=== PATIENT | female | born 1990 | race Caucasian/White ===

== ENCOUNTER 2020-07-27 20:34 | Emergency (ER) | payer SELFPAY ==
[~2020-07-27] VITALS: Ht 154.9 cm; Wt 63.5 kg
--- NOTE | 2020-07-27 20:51 | ED Cough/URI ---
General Stated Complaint: COUGH,SORE THROAT,DIARRHEA,CHILLS Source: patient Exam Limitations: no limitations History of Present Illness Date Seen by Provider: Jul 27, 2020 Time Seen by Provider: 20:49 Initial Comments To ER with a nonproductive cough, sore throat, diarrhea, chills, body aches, headache that began suddenly yesterday. She has not had the Covid vaccine. Timing/Duration: constant Severity/Quality: dry cough Prior Episodes/Possible Cause: no prior episodes Associated Symptoms: cough, fever/chills, nasal congestion, sore throat Allergies and Home Medications Allergies Coded Allergies: No Known Drug Allergies (Unverified , 07/27/20) Patient Home Medication List Home Medication List Reviewed: Yes Review of Systems Review of Systems Constitutional: see HPI, chills, malaise EENTM: see HPI Respiratory: cough Cardiovascular: no symptoms reported Genitourinary: no symptoms reported Musculoskeletal: no symptoms reported Skin: no symptoms reported Psychiatric/Neurological: No Symptoms Reported Hematologic/Lymphatic: No Symptoms Reported Physical Exam Vital Signs - First Documented Capillary Refill : Height: '" Weight: lbs. oz. kg; BMI Method: General Appearance: WD/WN, no apparent distress, other (Alert and oriented no distress heart rate little high at about 110 oxygen saturation 98% room air blood pressure 122/86.) Eyes: Bilateral Eye Normal Inspection, Bilateral Eye PERRL, Bilateral Eye EOMI Neck: non-tender, full range of motion; No lymphadenopathy (R), No lymphadenopa thy (L) Respiratory: no respiratory distress, no accessory muscle use Cardiovascular: no murmur, tachycardia Gastrointestinal: normal bowel sounds, non tender, soft Neurologic/Psychiatric: alert, normal mood/affect, oriented x 3 Skin: normal color, warm/dry Focused Exam Lactate Level 07/27/20 20:52: Lactic Acid Level 1.24 Lactic Acid Level Laboratory Tests Test 07/27/20 20:52 Lactic Acid Level 1.24 MMOL/L (0.50-2.00) Progress/Results/Core Measures Suspected Sepsis SIRS Temperature: Pulse: Respiratory Rate: Laboratory Tests 07/27/20 20:52: White Blood Count 5.9 Blood Pressure / Mean: 07/27/20 20:52: Lactic Acid Level 1.24 Laboratory Tests 07/27/20 20:52: Creatinine 0.93, Platelet Count 217, Total Bilirubin 0.2 Results/Orders Lab Results Laboratory Tests Test 07/27/20 20:45 07/27/20 20:52 07/27/20 21:34 Range/Units Influenza Type A (RT-PCR) Not Detected Not Detecte Influenza Type B (RT-PCR) Not Detected Not Detecte SARS-CoV-2 RNA (RT-PCR) Detected H Not Detecte White Blood Count 5.9 4.3-11.0 10^3/uL Red Blood Count 4.50 3.80-5.11 10^6/uL Hemoglobin 14.0 11.5-16.0 g/dL Hematocrit 41 35-52 % Mean Corpuscular Volume 92 80-99 fL Mean Corpuscular Hemoglobin 31 25-34 pg Mean Corpuscular Hemoglobin Concent 34 32-36 g/dL Red Cell Distribution Width 12.4 10.0-14.5 % Platelet Count 217 130-400 10^3/uL Mean Platelet Volume 11.0 9.0-12.2 fL Immature Granulocyte % (Auto) 0 % Neutrophils (%) (Auto) 57 42-75 % Lymphocytes (%) (Auto) 31 12-44 % Monocytes (%) (Auto) 11 0-12 % Eosinophils (%) (Auto) 1 0-10 % Basophils (%) (Auto) 0 0-10 % Neutrophils # (Auto) 3.4 1.8-7.8 10^3/uL Lymphocytes # (Auto) 1.8 1.0-4.0 10^3/uL Monocytes # (Auto) 0.6 0.0-1.0 10^3/uL Eosinophils # (Auto) 0.1 0.0-0.3 10^3/uL Basophils # (Auto) 0.0 0.0-0.1 10^3/uL Immature Granulocyte # (Auto) 0.0 0.0-0.1 10^3/uL Sodium Level 138 135-145 MMOL/L Potassium Level 3.4 L 3.6-5.0 MMOL/L Chloride Level 106 98-107 MMOL/L Carbon Dioxide Level 21 21-32 MMOL/L Anion Gap 11 5-14 MMOL/L Blood Urea Nitrogen 7 7-18 MG/DL Creatinine 0.93 0.60-1.30 MG/DL Estimat Glomerular Filtration Rate > 60 BUN/Creatinine Ratio 8 Glucose Level 100 70-105 MG/DL Lactic Acid Level 1.24 0.50-2.00 MMOL/L Calcium Level 9.1 8.5-10.1 MG/DL Corrected Calcium 8.9 8.5-10.1 MG/DL Total Bilirubin 0.2 0.1-1.0 MG/DL Aspartate Amino Transf (AST/SGOT) 36 H 5-34 U/L Alanine Aminotransferase (ALT/SGPT) 47 0-55 U/L Alkaline Phosphatase 117 40-136 U/L Total Protein 8.1 6.4-8.2 GM/DL Albumin 4.2 3.2-4.5 GM/DL Serum Test, Qualitative NEGATIVE NEGATIVE Urine Color YELLOW Urine Clarity CLEAR Urine pH 6.0 5-9 Urine Specific [place] 1.020 1.016-1.022 Urine Protein NEGATIVE NEGATIVE Urine Glucose (UA) NEGATIVE NEGATIVE Urine Ketones NEGATIVE NEGATIVE Urine Nitrite NEGATIVE NEGATIVE Urine Bilirubin NEGATIVE NEGATIVE Urine Urobilinogen 1.0 < = 1.0 MG/DL Urine Leukocyte Esterase 1+ H NEGATIVE Urine RBC (Auto) 1+ H NEGATIVE Urine RBC 0-2 /HPF Urine WBC 0-2 /HPF Urine Squamous Epithelial Cells 5-10 /HPF Urine Crystals NONE /LPF Urine Bacteria NEGATIVE /HPF Urine Casts NONE /LPF Urine Mucus NEGATIVE /LPF Urine Culture Indicated NO My Orders Orders - ROGE ERICKSON FITTING SUPERVISOR Covid 19 Inhouse Test (07/27/20 20:40) Influenza A And B By Pcr (07/27/20 20:40) Chest 1 View, Ap/Pa Only (07/27/20 20:47) Ibuprofen Tablet (Motrin Tablet) (07/27/20 21:00) Ns Iv 1000 Ml (Sodium Chloride 0.9%) (07/27/20 21:00) Ua Culture If Indicated (07/27/20 21:00) Cbc With Automated Diff (07/27/20 21:00) Comprehensive Metabolic Panel (07/27/20 21:00) Hcg,Qualitative Serum (07/27/20 21:00) Lactic Acid Analyzer (07/27/20 21:00) Blood Culture (07/27/20 21:00) Medications Given in ED Current Medications Medications Dose Ordered Sig/Stephanie Route Start Time Stop Time Status Last Admin Dose Admin Ibuprofen 800 mg ONCE ONCE PO 07/27/20 21:00 07/27/20 21:01 DC 07/27/20 21:04 800 MG Vital Signs/I&O 07/27/20 07/27/20 07/27/20 07/27/20 20:42 20:42 20:42 21:04 Temp 38.4 38.4 38.4 Pulse 120 120 Resp 18 18 B/P (MAP) 122/86 (98) 122/86 Pulse Ox 98 98 O2 Delivery Room Air Room Air Capillary Refill : Departure Impression Primary Impression: COVID-19 Disposition: 01 HOME, SELF-CARE Condition: Stable Departure-Patient Inst. Decision time for Depature: 21:51 Patient Instructions: COVID-19 Overview Add. Discharge Instructions: 1. Take Tylenol and ibuprofen for fever or pain. You will feel sick for about 10 days. You should stay quarantined away from family friends and work until 10 days from yesterday. Return to ER for any worsening. Work/School Note: Work Release Form Date Seen in the Emergency Department: Jul 27, 2020 Return to Work: Aug 06, 2020 ROGE ERICKSON APRN Jul 27, 2020 20:51
[2020-07-27] MEDS ORDERED: IBUPROFEN 800 MG (MOTRIN) TAB PO ONE (21:00)
[2020-07-27] MEDS ORDERED: NS IV 1000 ML 1,000 ML IV SCH (21:00)
[2020-07-27 21:10] LABS: BASOPHILS % (AUTO) 0 % (0-10); EOSINOPHILS # (AUTO) 0.1 10^3/uL (0.0-0.3); EOSINOPHILS % (AUTO) 1 % (0-10); HEMATOCRIT 41 % (35-52); LYMPHOCYTES # (AUTO) 1.8 10^3/uL (1.0-4.0); LYMPHOCYTES % (AUTO) 31 % (12-44); MEAN CORPUSCULAR HEMOGLOBIN 31 pg (25-34); MEAN CORPUSCULAR HGB CONC 34 g/dL (32-36); MEAN CORPUSCULAR VOLUME 92 fL (80-99); MONOCYTES # (AUTO) 0.6 10^3/uL (0.0-1.0); MONOCYTES % (AUTO) 11 % (0-12); NEUTROPHILS # (AUTO) 3.4 10^3/uL (1.8-7.8); NEUTROPHILS % (AUTO) 57 % (42-75); PLATELET COUNT 217 10^3/uL (130-400); WHITE BLOOD COUNT 5.9 10^3/uL (4.3-11.0)
[2020-07-27 21:36] LABS: BILIRUBIN,URINE NEGATIVE (NEGATIVE); CLARITY,URINE CLEAR; COLOR,URINE YELLOW; GLUCOSE, URINE (UA) NEGATIVE (NEGATIVE); KETONES,URINE NEGATIVE (NEGATIVE); LEUKOCYTE ESTERASE ,URINE 1+ (NEGATIVE); NITRITE,URINE NEGATIVE (NEGATIVE); PROTEIN,URINE NEGATIVE (NEGATIVE)
[2020-07-27 21:38] LABS: ALANINE AMINOTRANSFERASE 47 U/L (0-55); ALBUMIN 4.2 GM/DL (3.2-4.5); ALKALINE PHOSPHATASE 117 U/L (40-136); BILIRUBIN,TOTAL 0.2 MG/DL (0.1-1.0); BUN/CREATININE RATIO 8; CALCIUM 9.1 MG/DL (8.5-10.1); CARBON DIOXIDE 21 MMOL/L (21-32); CHLORIDE 106 MMOL/L (98-107); CREATININE SERUM 0.93 MG/DL (0.60-1.30); GFR ESTIMATED > 60; GLUCOSE 100 MG/DL (70-105); POTASSIUM 3.4 MMOL/L (3.6-5.0); SODIUM 138 MMOL/L (135-145); TOTAL PROTEIN 8.1 GM/DL (6.4-8.2)
--- NOTE | 2020-07-27 21:40 | Diagnostic Imaging Report ---
EXAMINATION: Chest 1 view. HISTORY: Cough and fever. COMPARISON: None available. FINDINGS: The lungs are clear without edema or pneumonia. No pleural effusion or pneumothorax. Heart size is normal. IMPRESSION: Clear lungs. Dictated by: Dictated on workstation # [id number]
[2020-07-27 21:48] LABS: BACTERIA,URINE NEGATIVE /HPF; RBC,URINE 0-2 /HPF; WBC,URINE 0-2 /HPF
[2020-07-27 22:13] VITALS: BP 101/67
== END 2020-07-27 22:14 | disposition home or self-care (01) ==
LOC: ER 20:37
DX: U07.1 COVID-19 (principal); R00.0 Tachycardia, unspecified
CPT/HCPCS: 36415; 71045; 80053; 81000; 83605; 84703; 85025; 87040; 87636

== ENCOUNTER 2021-01-30 17:34 | Emergency (ER) | payer MEDICAID ==
[~2021-01-30] VITALS: Ht 157.5 cm; Wt 59.0 kg
[2021-01-30 18:12] LABS: BILIRUBIN,URINE NEGATIVE (NEGATIVE); CLARITY,URINE CLEAR; COLOR,URINE YELLOW; GLUCOSE, URINE (UA) NEGATIVE (NEGATIVE); KETONES,URINE NEGATIVE (NEGATIVE); LEUKOCYTE ESTERASE ,URINE 2+ (NEGATIVE); NITRITE,URINE NEGATIVE (NEGATIVE); PROTEIN,URINE NEGATIVE (NEGATIVE)
[2021-01-30 18:19] LABS: BACTERIA,URINE MODERATE /HPF
--- NOTE | 2021-01-30 18:39 | ED Back Pain ---
General Chief Complaint: Back Problems Stated Complaint: BACK PAIN Nursing Triage Note: PT AMBULATE TO ROOM FT1 WITH C/O RIGHT UPPER BACK PAIN. PT REPORTS HAVING A COUPLE DARKENED AREAS OF SKIN THAT HAVE GOTTEN DARKER AND FEELS PAIN "DEEP INSIDE" WHERE THE AREAS ARE AT. PT REPORTS PAIN IS WORSE WHEN SHE BENDS AND TWISTS. Source of Information: Patient Exam Limitations: No Limitations History of Present Illness Date Seen by Provider: Jan 30, 2021 Time Seen by Provider: 18:10 Initial Comments Here with report of right upper back pain and an area that has skin color changes as well. She states this pain has been intermittent over the last 10 years and feels like it is inside. She noted that she has mentation changes in the area. It is not raised and there is no other abnormal skin findings. She thinks it is grown a little bit. Does note that the pain worsens when she bends and reaches forward. She does work at one of the local [employer] jobs and some days that increases her pain but other days she has no problems. Denies any specific injury. Location: Other (Right low lateral thoracic region) Timing/Duration: Intermittent, Other (10 years) Severity: Mild, Moderate Pain/Injury Location: Back Radiation: Other (No radiation) Method of Injury: Unknown Modifying Factors: Worse With Movement; Improves With Rest Associated Symptoms: denies symptoms Allergies and Home Medications Allergies Coded Allergies: No Known Drug Allergies (Unverified , 07/27/20) Patient Home Medication List Home Medication List Reviewed: Yes Review of Systems Constitutional: see HPI; No chills, No fever Respiratory: No cough, No short of breath Cardiovascular: no symptoms reported Gastrointestinal: No abdominal pain, No nausea, No vomiting Genitourinary: No dysuria, No frequency Musculoskeletal: back pain, muscle pain Skin: see HPI, change in color; No rash Past Blsuqof-Ieolrm-Lvuxol Hx Patient Social History Tobacco Use?: No Smoking Status: Never a Smoker Smokeless Tobacco Frequency: Never a User Use of E-Cig and/or Vaping dev: No Use of E-Cig and/or Vaping Yinka: Never a User Substance use?: No Alcohol Use?: No Pt feels they are or have been: No Seasonal Allergies Seasonal Allergies: No Past Medical History Surgeries: No Respiratory: No Cardiac: No Neurological: No Genitourinary: No Gastrointestinal: No Musculoskeletal: No Endocrine: No HEENT: No Cancer: No Psychosocial: No Integumentary: No Blood Disorders: No Family Medical History Reviewed Nursing Family Hx Physical Exam Vital Signs Vital Signs - First Documented 01/30/21 17:53 Temp 36.8 Pulse 82 Resp 16 B/P (MAP) 125/90 (102) O2 Delivery Room Air Capillary Refill : Less Than 3 Seconds Height, Weight, BMI Height: '" Weight: lbs. oz. kg; 23.00 BMI Method: General Appearance: No Apparent Distress, WD/WN Cardiovascular: Regular Rate, Rhythm, No Murmur Respiratory: Lungs Clear, Normal Breath Sounds Gastrointestinal: No Pulsatile Mass, Non Tender, Soft Back: No CVA Tenderness, No Vertebral Tenderness Neurologic/Psychiatric: Alert, Oriented x3 Skin: Warm/Dry, Other (Does have 2 areas of darker pigmentation in the area of concern on the right lower lateral chest posterior aspect. These are not raised. There is no associated rash or lesion. Nontender to palpation. She states her pain is actually deeper.) Progress/Results/Core Measures Results/Orders Lab Results Laboratory Tests Test 01/30/21 18:10 Range/Units Urine Color YELLOW Urine Clarity CLEAR Urine pH 6.0 5-9 Urine Specific [place] 1.025 H 1.016-1.022 Urine Protein NEGATIVE NEGATIVE Urine Glucose (UA) NEGATIVE NEGATIVE Urine Ketones NEGATIVE NEGATIVE Urine Nitrite NEGATIVE NEGATIVE Urine Bilirubin NEGATIVE NEGATIVE Urine Urobilinogen 0.2 < = 1.0 MG/DL Urine Leukocyte Esterase 2+ H NEGATIVE Urine RBC (Auto) 1+ H NEGATIVE Urine RBC 2-5 H /HPF Urine WBC 10-25 H /HPF Urine Squamous Epithelial Cells 10-25 H /HPF Urine Crystals NONE /LPF Urine Bacteria MODERATE H /HPF Urine Casts NONE /LPF Urine Mucus NEGATIVE /LPF Urine Culture Indicated YES My Orders Orders - HEAVEN QUACH MD Chest Pa/Lat (2 View) (01/30/21 18:23) Vital Signs/I&O 01/30/21 17:53 Temp 36.8 Pulse 82 Resp 16 B/P (MAP) 125/90 (102) O2 Delivery Room Air Blood Pressure Mean: 102 Progress Progress Note : Progress Note Seen and evaluated. UA ordered due to location of pain. X-ray chest also ordered. I do not have concerns with the pigmentation and actually had second opinion with Dr. Orozco. This just seems to be an area of more hyperpigmentation without lesion. We will see what chest x-ray shows. Patient was appreciative. Monitor patient. 1911: Chest x-ray shows no acute findings. Discharged home with return precautions. Patient verbalized understanding of instructions and agreement with plan. Diagnostic Imaging Diagonstic Imaging: Xray Plain Films/CT/US/NM/MRI: chest Comments [facility]. [place], [place] NAME: VIKAS GARIBAY REC#: [id number] PT STATUS: REG ER : 1990 PHYSICIAN: HEAVEN QUACH MD ADMIT DATE: 01/30/21/ER Signed Date of Exam:01/30/21 CHEST PA/LAT (2 VIEW) INDICATION: Right chest pain. COMPARISON: 07/27/2020 FINDINGS: The lungs appear clear without focal infiltrate or consolidation. There are no findings of an effusion. There is no evidence of a pneumothorax. Heart size and mediastinal contours appear appropriate. Pulmonary vascularity appears within normal limits. There is no acute or suspicious osseous abnormality demonstrated. IMPRESSION: No radiographic evidence of an acute cardiopulmonary process. Dictated by: Dictated on workstation # [id number] Dict: 01/30/211848 Trans: 01/30/211850 [facility] [id number] Interpreted by: JOHN CREWS MD Electronically signed by: JOHN CREWS MD 01/30/211850 Departure Impression Primary Impression: Chest wall pain Disposition: 01 HOME, SELF-CARE Condition: Stable Departure-Patient Inst. Decision time for Depature: 19:13 Referrals: BALJIT GRIFFIN MD NO,LOCAL PHYSICIAN (PCP) Primary Care Physician [facility] Patient Instructions: Upper Back Pain (DC), Costochondritis (DC) Add. Discharge Instructions: All discharge instructions reviewed with patient and/or family. Voiced understanding. You may take ibuprofen 600 mg every 8 hours as needed for pain. You may also take Tylenol/acetaminophen 1000 mg every 8 hours as needed for pain. You may use hyac-dht-uczayzj Icy Hot with lidocaine patches, Aspercreme with lidocaine patches, Salonpas with lidocaine patches or similar items to area of concern per package directions. Follow-up with your doctor or doctor of your choosing for recheck and further evaluation. Monitor for changes of the skin including raised areas, change in texture or change in size. If these occur, you should follow-up with your doctor. Return for worse pain, fever, vomiting, weakness, breathing problems or other concerns as needed. HEAVEN QUACH MD Jan 30, 2021 18:39
--- NOTE | 2021-01-30 18:52 | Diagnostic Imaging Report ---
INDICATION: Right chest pain. COMPARISON: 07/27/2020 FINDINGS: The lungs appear clear without focal infiltrate or consolidation. There are no findings of an effusion. There is no evidence of a pneumothorax. Heart size and mediastinal contours appear appropriate. Pulmonary vascularity appears within normal limits. There is no acute or suspicious osseous abnormality demonstrated. IMPRESSION: No radiographic evidence of an acute cardiopulmonary process. Dictated by: Dictated on workstation # [id number]
[2021-01-30 19:21] VITALS: BP 125/90
== END 2021-01-30 19:27 | disposition home or self-care (01) ==
LOC: EDUNIT# 17:34 → ER 17:38
DX: R07.89 Other chest pain (principal)
CPT/HCPCS: 71046; 81000; 84703; 87088

== ENCOUNTER 2021-02-01 09:13 | Emergency (ER) | payer MEDICAID ==
[~2021-02-01] VITALS: Ht 152.4 cm; Wt 59.0 kg
[2021-02-01] MEDS ORDERED: D-ME118S33 PO (10:37)
--- NOTE | 2021-02-01 10:38 | ED General ---
General Chief Complaint: General Problems/Pain Stated Complaint: RUNNY NOSE, FEVER, SORE THROAT Nursing Triage Note: AMB TO ROOM HAD BEEN AT REGESTRATION DESK WAS SEEN 2 DAYS AGO IN ED RESQUESTED NOTE TILL WEDNESDAY WAS TOLD COULD ONLY GIVE HER ONE DAY. PATIENT THAN CHECKED IN ED FOR SORE THROAT AND CONGESTION BUT DENIES ALL. HAD COVID IN JUL Source of Information: Patient Exam Limitations: No Limitations History of Present Illness Date Seen by Provider: Feb 01, 2021 Time Seen by Provider: 10:35 Initial Comments To ER with "a cold". Had Covid in July and has recovered. Has not been vaccinated. Symptoms began 2 days ago with runny nose sore throat no body aches no fever no headache no diarrhea. Timing/Duration: 1-2 Days Severity: Moderate Associated Systoms: Cough (Mild infrequent); No Headaches, No Nausea/Vomiting Allergies and Home Medications Allergies Coded Allergies: No Known Drug Allergies (Unverified , 07/27/20) Patient Home Medication List Home Medication List Reviewed: Yes Review of Systems Review of Systems Constitutional: see HPI EENTM: see HPI, nose congestion Respiratory: no symptoms reported Cardiovascular: no symptoms reported Genitourinary: no symptoms reported Musculoskeletal: no symptoms reported Skin: no symptoms reported Psychiatric/Neurological: No Symptoms Reported Hematologic/Lymphatic: No Symptoms Reported Past Uoapccc-Mzllpd-Danpqr Hx Patient Social History Use of E-Cig and/or Vaping dev: No Substance use?: No Seasonal Allergies Seasonal Allergies: No Past Medical History Surgeries: No Respiratory: No Cardiac: No Neurological: No Genitourinary: No Gastrointestinal: No Musculoskeletal: No Endocrine: No HEENT: No Cancer: No Psychosocial: No Integumentary: No Blood Disorders: No Physical Exam Vital Signs Vital Signs - First Documented 02/01/21 09:25 Temp 36.6 Pulse 87 Resp 18 B/P (MAP) 118/78 (91) Pulse Ox 97 O2 Delivery Room Air Capillary Refill : Less Than 3 Seconds Height, Weight, BMI Height: '" Weight: lbs. oz. kg; 25.00 BMI Method: General Appearance: No Apparent Distress, WD/WN Eyes: Bilateral Eye Normal Inspection, Bilateral Eye PERRL, Bilateral Eye EOMI HEENT: PERRL/EOMI, TMs Normal, Other (Rhinorrhea. Normal throat. Lungs are clear.) Neck: Full Range of Motion, Normal Inspection Respiratory: Normal Breath Sounds, No Accessory Muscle Use, No Respiratory Distress Cardiovascular: Regular Rate, Rhythm Gastrointestinal: Normal Bowel Sounds, Non Tender, Soft Extremity: Normal Capillary Refill, Normal Inspection Neurologic/Psychiatric: Alert, Oriented x3 Skin: Normal Color, Warm/Dry Progress/Results/Core Measures Suspected Sepsis SIRS Temperature: Pulse: 87 Respiratory Rate: 18 Blood Pressure 118 /78 Mean: 91 Results/Orders Vital Signs/I&O 02/01/21 09:25 Temp 36.6 Pulse 87 Resp 18 B/P (MAP) 118/78 (91) Pulse Ox 97 O2 Delivery Room Air Capillary Refill : Less Than 3 Seconds Blood Pressure Mean: 91 Departure Impression Primary Impression: Viral syndrome Disposition: HOME, SELF-CARE Condition: Stable Departure-Patient Inst. Decision time for Depature: 10:36 Referrals: NO,LOCAL PHYSICIAN (PCP) Primary Care Physician Patient Instructions: Viral Syndrome (DC) Add. Discharge Instructions: 1. Return to ER for any concerns 2. Medication as directed. Off work till Wednesday. Return to ER for any worsening All discharge instructions reviewed with patient and/or family. Voiced understanding. Scripts D-Methorphan Hb/P-Epd HCl/Bpm (Bromfed Dm Cough Syrup) 118 Ml Syrup 5 ML PO Q4H PRN for CONGESTION for 7 Days, #120 ML Prov: ROGE ERICKSON APRN 02/01/21 Work/School Note: Work Release Form Date Seen in the Emergency Department: Feb 01, 2021 Return to Work: Feb 04, 2021 ROGE ERICKSON APRN Feb 01, 2021 10:38
[2021-02-01 10:42] VITALS: BP 118/78
== END 2021-02-01 10:42 | disposition home or self-care (01) ==
LOC: EDUNIT# 09:13 → ER 09:17
DX: B34.9 Viral infection, unspecified (principal); Z86.16 Personal history of COVID-19
CPT/HCPCS: 99281

== ENCOUNTER 2021-04-03 16:14 | Emergency (ER) | payer MEDICAID ==
[~2021-04-03] VITALS: Ht 157.5 cm; Wt 61.3 kg
[~2021-04-03 16:14] MED LIST: D-ME118S33 PO
--- NOTE | 2021-04-03 16:29 | ED Chest Pain ---
General Chief Complaint: Chest Wall Stated Complaint: HEART PAIN Source: patient Exam Limitations: no limitations History of Present Illness Date Seen by Provider: Apr 03, 2021 Time Seen by Provider: 16:27 Initial Comments To ER with sharp anterior left chest pain worsened by deep breathing since Wednesday of this week (today is ). No fevers no chills no cough no sore throat no rhinorrhea. No swelling in either of her legs. Timing/Duration: 3-4 days Severity/Quality: moderate, sharp Location: central Radiation: no radiation Activities at Onset: none ASA po AGENT TICKETING GATE: No NTG SL AGENT TICKETING GATE: No Associated Symptoms: denies symptoms Allergies and Home Medications Allergies Coded Allergies: No Known Drug Allergies (Unverified , 07/27/20) Patient Home Medication List Home Medication List Reviewed: Yes D-Methorphan Hb/P-Epd HCl/Bpm (Bromfed Dm Cough Syrup) 118 Ml Syrup, 5 ML PO Q4H PRN for CONGESTION Prescribed by: ROGE ERICKSON on 02/01/21 1038 Review of Systems Review of Systems Constitutional: see HPI EENTM: No Symptoms Reported Respiratory: No Symptoms Reported Cardiovascular: See HPI, Chest Pain Gastrointestinal: No Symptoms Reported Genitourinary: No Symptoms Reported Musculoskeletal: no symptoms reported Skin: no symptoms reported Psychiatric/Neurological: No Symptoms Reported Endocrine: No Symptoms Reported Hematologic/Lymphatic: No Symptoms Reported Past Ukxxfbv-Plmfqb-Cuipiq Hx Seasonal Allergies Seasonal Allergies: No Past Medical History Surgeries: No Respiratory: No Cardiac: No Neurological: No Genitourinary: No Gastrointestinal: No Musculoskeletal: No Endocrine: No HEENT: No Cancer: No Psychosocial: No Integumentary: No Blood Disorders: No Physical Exam Vital Signs Vital Signs - First Documented 04/03/21 16:22 Temp 36.7 Pulse 76 Resp 16 B/P (MAP) 101/84 (90) Pulse Ox 100 O2 Delivery Room Air Capillary Refill : Height, Weight, BMI Height: '" Weight: lbs. oz. kg; 25.00 BMI Method: General Appearance: No Apparent Distress, WD/WN HEENT: PERRL/EOMI, TMs Normal Neck: Full Range of Motion, Normal Inspection Respiratory: Lungs Clear, Normal Breath Sounds, No Accessory Muscle Use, No Respiratory Distress Cardiovascular: Regular Rate, Rhythm, Normal Peripheral Pulses Gastrointestinal: Normal Bowel Sounds, Non Tender, Soft Extremity: Normal Capillary Refill, Normal Inspection Neurologic/Psychiatric: Alert, Oriented x3 Skin: Normal Color, Warm/Dry Progress/Results/Core Measures Results/Orders Lab Results Laboratory Tests Test 04/03/21 16:42 Range/Units White Blood Count 8.2 4.3-11.0 10^3/uL Red Blood Count 4.27 3.80-5.11 10^6/uL Hemoglobin 13.3 11.5-16.0 g/dL Hematocrit 40 35-52 % Mean Corpuscular Volume 94 80-99 fL Mean Corpuscular Hemoglobin 31 25-34 pg Mean Corpuscular Hemoglobin Concent 33 32-36 g/dL Red Cell Distribution Width 12.2 10.0-14.5 % Platelet Count 263 130-400 10^3/uL Mean Platelet Volume 11.3 9.0-12.2 fL Immature Granulocyte % (Auto) 0 % Neutrophils (%) (Auto) 55 42-75 % Lymphocytes (%) (Auto) 35 12-44 % Monocytes (%) (Auto) 8 0-12 % Eosinophils (%) (Auto) 2 0-10 % Basophils (%) (Auto) 1 0-10 % Neutrophils # (Auto) 4.5 1.8-7.8 10^3/uL Lymphocytes # (Auto) 2.9 1.0-4.0 10^3/uL Monocytes # (Auto) 0.6 0.0-1.0 10^3/uL Eosinophils # (Auto) 0.1 0.0-0.3 10^3/uL Basophils # (Auto) 0.0 0.0-0.1 10^3/uL Immature Granulocyte # (Auto) 0.0 0.0-0.1 10^3/uL Sodium Level 136 135-145 MMOL/L Potassium Level 4.0 3.6-5.0 MMOL/L Chloride Level 106 98-107 MMOL/L Carbon Dioxide Level 20 L 21-32 MMOL/L Anion Gap 10 5-14 MMOL/L Blood Urea Nitrogen 12 7-18 MG/DL Creatinine 0.68 0.60-1.30 MG/DL Estimat Glomerular Filtration Rate 119 BUN/Creatinine Ratio 18 Glucose Level 97 70-105 MG/DL Calcium Level 9.5 8.5-10.1 MG/DL Corrected Calcium 9.3 8.5-10.1 MG/DL Total Bilirubin 0.4 0.1-1.0 MG/DL Aspartate Amino Transf (AST/SGOT) 21 5-34 U/L Alanine Aminotransferase (ALT/SGPT) 18 0-55 U/L Alkaline Phosphatase 105 40-136 U/L Troponin I < 0.028 <0.028 NG/ML Total Protein 8.0 6.4-8.2 GM/DL Albumin 4.3 3.2-4.5 GM/DL Serum Test, Qualitative NEGATIVE NEGATIVE My Orders Orders - ROGE ERICKSON APRN Cbc With Automated Diff (04/03/21 16:26) Comprehensive Metabolic Panel (04/03/21 16:) Troponin I Jamel (04/03/21 16:) Chest 1 View, Ap/Pa Only (04/03/21 16:) Hcg,Qualitative Serum (04/03/21 16:) Ed Iv/Invasive Line Start (04/03/21 16:) Ekg Tracing (04/03/21 16:) Vital Signs/I&O 04/03/21: Temp 36.7 Pulse 76 Resp 16 B/P (MAP) 101/84 (90) Pulse Ox 100 O2 Delivery Room Air Departure Communication (Admissions) EKG shows a rate of 62 sinus no ectopy normal intervals no ST segment change Family Conversation NAME: VIKAS FIGUEROA [facility] REC#: [id number] PT STATUS: REG ER : 1990 PHYSICIAN: ROGE ERICKSON APRN ADMIT DATE: 04/03/21/ER Signed Date of Exam:04/03/21 CHEST 1 VIEW, AP/PA ONLY Indication: Left-sided chest pain Comparison: 07/27/2020 Findings: Single view of the chest demonstrates clear lungs bilaterally. The heart is normal. There is no pneumothorax. Osseous structures are normal. Impression: Negative chest Dictated by: Dictated on workstation # [id number] Dict: 04/03/211640 Trans: 04/03/211647 CV [id number] Interpreted by: CHRISTINA RODNEY Electronically signed by: CHRISTINA RODNEY 04/03/211647 Heart rate is 75 oxygen 100% room air. Impression Primary Impression: Pleuritic chest pain Disposition: 01 HOME, SELF-CARE Condition: Stable Departure-Patient Inst. Decision time for Depature: 16:29 Referrals: NO,LOCAL PHYSICIAN (PCP/Family) Primary Care Physician Patient Instructions: Pleuritic Chest Pain ED Add. Discharge Instructions: 1. Tylenol and ibuprofen for pain control. Follow-up with your doctor next week. All discharge instructions reviewed with patient and/or family. Voiced understanding. ROGE ERICKSON APRN Apr 03, 2021 16:29
--- NOTE | 2021-04-03 16:43 | Diagnostic Imaging Report ---
Indication: Left-sided chest pain Comparison: 07/27/2020 Findings: Single view of the chest demonstrates clear lungs bilaterally. The heart is normal. There is no pneumothorax. Osseous structures are normal. Impression: Negative chest Dictated by: Dictated on workstation # [id number]
[2021-04-03 16:58] LABS: BASOPHILS % (AUTO) 1 % (0-10); EOSINOPHILS # (AUTO) 0.1 10^3/uL (0.0-0.3); EOSINOPHILS % (AUTO) 2 % (0-10); HEMATOCRIT 40 % (35-52); HEMOGLOBIN 13.3 g/dL (11.5-16.0); LYMPHOCYTES # (AUTO) 2.9 10^3/uL (1.0-4.0); LYMPHOCYTES % (AUTO) 35 % (12-44); MEAN CORPUSCULAR HEMOGLOBIN 31 pg (25-34); MEAN CORPUSCULAR HGB CONC 33 g/dL (32-36); MEAN CORPUSCULAR VOLUME 94 fL (80-99); MEAN PLATELET VOLUME 11.3 fL (9.0-12.2); MONOCYTES # (AUTO) 0.6 10^3/uL (0.0-1.0); MONOCYTES % (AUTO) 8 % (0-12); NEUTROPHILS # (AUTO) 4.5 10^3/uL (1.8-7.8); NEUTROPHILS % (AUTO) 55 % (42-75); PLATELET COUNT 263 10^3/uL (130-400); WHITE BLOOD COUNT 8.2 10^3/uL (4.3-11.0)
[2021-04-03 17:06] LABS: ALBUMIN 4.3 GM/DL (3.2-4.5); CHLORIDE 106 MMOL/L (98-107); SODIUM 136 MMOL/L (135-145)
[2021-04-03 17:08] LABS: CALCIUM 9.5 MG/DL (8.5-10.1)
[2021-04-03 17:09] LABS: GLUCOSE 97 MG/DL (70-105)
[2021-04-03 17:10] LABS: CARBON DIOXIDE 20 MMOL/L (21-32)
[2021-04-03 17:11] LABS: BILIRUBIN,TOTAL 0.4 MG/DL (0.1-1.0)
[2021-04-03 17:12] LABS: ALKALINE PHOSPHATASE 105 U/L (40-136)
[2021-04-03 17:13] LABS: CREATININE SERUM 0.68 MG/DL (0.60-1.30); GFR ESTIMATED 119
[2021-04-03 17:14] LABS: BUN/CREATININE RATIO 18
[2021-04-03 17:15] LABS: ALANINE AMINOTRANSFERASE 18 U/L (0-55)
[2021-04-03 17:37] VITALS: BP 101/84
== END 2021-04-03 17:37 | disposition home or self-care (01) ==
LOC: EDUNIT# 16:14 → ER 16:19
DX: R09.1 Pleurisy (principal); Z32.02 Encounter for pregnancy test, result negative
CPT/HCPCS: 36415; 71045; 80053; 84484; 84703; 85025; 93005

== ENCOUNTER 2023-01-02 18:48 | Emergency (ER) | payer SELFPAY ==
[~2023-01-02] VITALS: Ht 154 cm; Wt 70.0 kg
[~2023-01-02 18:48] MED LIST changes: +BROM118S61 PO; -D-ME118S33 PO
--- NOTE | 2023-01-02 19:27 | ED GU-Female ---
General Chief Complaint: Head/Cervical Problems Stated Complaint: VOMITING/HEADACHE/10 WEEKS PREG Nursing Triage Note: PATIENT REPORTS TO ED POV FOR C/O RIGHT SIDED HEADACHE THAT STARTED THIS MORNING. PATIENT STATES HER RIGHT EYE PANDYA AND FEELS LIKE IT IS GOING TO POP OUT. PATIENT STATES SHE ALSO VOMITED LAST NIGHT AND HAS NOT BEEN ABLE TO EAT SINCE. PATIENT IS ABOUT 10 WEEKS GESTATION. PATIENT AND SPOUSE AMB. TO ROOM 05. 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 She has also been experiencing pelvic pressure for several weeks. She was vomiting last night when the headache started. She took Tylenol last night. Her biggest concern at this time is the headache. She denies any fever or vision changes. She has not been seen yet for this and has not had an ultrasound. She denies any vaginal bleeding or other vaginal symptoms. She has an appointment at [facility] on January 06. She denies sick exposures. She traveled to [place] 22 days ago. She has had headaches of this nature in the past but they are usually on the left. She has had some diarrhea but denies constipation. Diarrhea resolved a few weeks ago. Her headache has been present for several days. She has felt excessively tired. Her LMP was October 25. She denies any other health problems. Interview and exam was conducted with the assistance of bilingual staff. Patient is primarily Yakut-speaking. Allergies and Home Medications Allergies Coded Allergies: No Known Drug Allergies (Unverified , 07/27/20) Patient Home Medication List Home Medication List Reviewed: Yes D-Methorphan Hb/P-Epd HCl/Bpm (Bromfed Dm Cough Syrup) 118 Ml Syrup, 5 ML PO Q4H PRN for CONGESTION Prescribed by: ROGE ERICKSON on 02/01/21 1038 Promethazine HCl (Promethazine HCl) 12.5 Mg Tablet, 12.5 MG PO Q6H PRN for NAUSE A/VOMITING Prescribed by: ALEXIS CHAMBERS on 01/02/238 Review of Systems Review of Systems Constitutional: no symptoms reported EENTM: see HPI Respiratory: no symptoms reported Cardiovascular: no symptoms reported Gastrointestinal: see HPI Genitourinary: see HPI : Yes LMP: Oct 25, 2022 Musculoskeletal: no symptoms reported Skin: no symptoms reported Psychiatric/Neurological: See HPI Endocrine: No Symptoms Reported Hematologic/Lymphatic: No Symptoms Reported Past Okrglbm-Irvmnc-Fsgvzz Hx Patient Social History Tobacco Use?: No Substance use?: No Alcohol Use?: No Pt feels they are or have been: No Immunizations Up To Date First/Initial COVID19 Vaccinat: 02/2021 Second COVID19 Vaccination Román: 02/2022 Seasonal Allergies Seasonal Allergies: No Past Medical History Surgery/Hospitalization HX: DENIES Surgeries: No Respiratory: No Cardiac: No Neurological: Yes Headaches /Migraines Last Menstrual Period: Oct 25, 2022 Genitourinary: No Gastrointestinal: No Musculoskeletal: No Endocrine: No HEENT: No Cancer: No Psychosocial: No Integumentary: No Blood Disorders: No Physical Exam Vital Signs Vital Signs - First Documented 01/02/23 19:11 Temp 36.8 Pulse 90 Resp 20 B/P (MAP) 118/88 (98) Pulse Ox 98 O2 Delivery Room Air Capillary Refill : Less Than 3 Seconds Height, Weight, BMI Height: '" Weight: lbs. oz. kg; 29.00 BMI Method: General Appearance: WD/WN, no apparent distress HEENT: PERRL/EOMI, normal ENT inspection, TMs normal, pharynx normal, other (Face nontender to palpation over the sinuses. No nasal edema. 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, no motor/sensory deficits, alert, normal mood/affect, oriented x 3 Skin: normal color, warm/dry FHT 175 by Doppler Progress/Results/Core Measures Suspected Sepsis SIRS Temperature: Pulse: 90 Respiratory Rate: 20 Laboratory Tests 01/02/23 19:30: White Blood Count 12.4H Blood Pressure 118 /88 Mean: 98 Laboratory Tests 01/02/23 19:30: Creatinine 0.71, Platelet Count 267, Total Bilirubin 0.3 Results/Orders Lab Results Laboratory Tests Test 01/02/23 19:30 01/02/23 19:36 Range/Units White Blood Count 12.4 H 4.3-11.0 10^3/uL Red Blood Count 4.29 3.80-5.11 10^6/uL Hemoglobin 13.5 11.5-16.0 g/dL Hematocrit 40 35-52 % Mean Corpuscular Volume 93 80-99 fL Mean Corpuscular Hemoglobin 32 25-34 pg Mean Corpuscular Hemoglobin Concent 34 32-36 g/dL Red Cell Distribution Width 12.6 10.0-14.5 % Platelet Count 267 130-400 10^3/uL Mean Platelet Volume 10.5 9.0-12.2 fL Immature Granulocyte % (Auto) 1 % Neutrophils (%) (Auto) 71 42-75 % Lymphocytes (%) (Auto) 20 12-44 % Monocytes (%) (Auto) 7 0-12 % Eosinophils (%) (Auto) 1 0-10 % Basophils (%) (Auto) 0 0-10 % Neutrophils # (Auto) 8.8 H 1.8-7.8 10^3/uL Lymphocytes # (Auto) 2.4 1.0-4.0 10^3/uL Monocytes # (Auto) 0.9 0.0-1.0 10^3/uL Eosinophils # (Auto) 0.1 0.0-0.3 10^3/uL Basophils # (Auto) 0.1 0.0-0.1 10^3/uL Immature Granulocyte # (Auto) 0.1 0.0-0.1 10^3/uL Sodium Level 136 135-145 MMOL/L Potassium Level 4.0 3.6-5.0 MMOL/L Chloride Level 104 98-107 MMOL/L Carbon Dioxide Level 21 21-32 MMOL/L Anion Gap 11 5-14 MMOL/L Blood Urea Nitrogen 7 7-18 MG/DL Creatinine 0.71 0.60-1.30 MG/DL Estimat Glomerular Filtration Rate 115 BUN/Creatinine Ratio 10 Glucose Level 98 70-105 MG/DL Calcium Level 9.8 8.5-10.1 MG/DL Corrected Calcium 9.6 8.5-10.1 MG/DL Magnesium Level 2.1 1.6-2.4 MG/DL Total Bilirubin 0.3 0.1-1.0 MG/DL Aspartate Amino Transf (AST/SGOT) 40 H 5-34 U/L Alanine Aminotransferase (ALT/SGPT) 73 H 0-55 U/L Alkaline Phosphatase 95 40-136 U/L Total Protein 8.3 H 6.4-8.2 GM/DL Albumin 4.2 3.2-4.5 GM/DL Human Chorionic Gonadotropin, Quant [id number] H <5 MIU/ML Urine Color YELLOW Urine Clarity CLEAR Urine pH 7.5 5-9 Urine Specific [place] 1.015 L 1.016-1.022 Urine Protein NEGATIVE NEGATIVE Urine Glucose (UA) NEGATIVE NEGATIVE Urine Ketones NEGATIVE NEGATIVE Urine Nitrite NEGATIVE NEGATIVE Urine Bilirubin NEGATIVE NEGATIVE Urine Urobilinogen 0.2 < = 1.0 MG/DL Urine Leukocyte Esterase NEGATIVE NEGATIVE Urine RBC (Auto) NEGATIVE NEGATIVE Urine RBC NONE /HPF Urine WBC RARE /HPF Urine Squamous Epithelial Cells 0-2 /HPF Urine Crystals PRESENT H /LPF Urine Amorphous Sediment FEW EVERARDO PHOSPHATE H /LPF Urine Bacteria FEW H /HPF Urine Casts PRESENT /LPF Urine Waxy Casts RARE H /LPF Urine Mucus NEGATIVE /LPF Urine Culture Indicated YES Micro Results Microbiology 01/02/23 Urine Culture - Final, Complete See Comments My Orders Orders - ALEXIS CARTAGENA MD Cbc And Automated Diff (01/02/23 19:26) Comprehensive Metabolic Panel (01/02/23 19:26) Hcg,Quantitative (01/02/23 19:26) Magnesium (01/02/23 19:26) Ua Culture If Indicated (01/02/23 19:26) Ed Iv/Invasive Line Start (01/02/23 19:26) Lactated Ringers 1,000 Ml (Lactated Ring (01/02/23 19:30) Urine Culture (01/02/23 19:36) Acetaminophen Tablet (Acetaminophen Ta (01/02/23 20:30) Promethazine Injection (Promethazine I (01/02/23 20:45) Medications Given in ED Vital Signs/I&O Capillary Refill : Less Than 3 Seconds Blood Pressure Mean: 98 Progress Note : Progress Note heart tones were assessed by Doppler and were 175 bpm. Labs were obtained and interpreted by me. CBC was notable for slight leukocytosis with WBC of 12.9. CMP was clinically unremarkable with only slight elevation of transaminases. Beta hCG quantitative level was [id number]. Urinalysis demonstrated some crystals and few bacteria. Patient was treated with 1 L of LR, Tylenol, and Phenergan with significant improvement. Ultrasound order was given to obtain ultrasound the next day due to her pelvic pain. See discharge instruct ions for further discussion. Departure Impression Primary Impression: Pelvic pain affecting Qualified Codes: O26.891 - Other specified related conditions, first trimester; R10.2 - Pelvic and perineal pain Additional Impressions: Nausea & vomiting Qualified Codes: R11.2 - Nausea with vomiting, unspecified Acute headache Qualified Codes: R51.9 - Headache, unspecified Disposition: ADMITTED INPATIENT Condition: Improved Departure-Patient Inst. Decision time for Depature: 21:26 Referrals: NO,LOCAL PHYSICIAN (PCP/Family) Primary Care Physician Patient Instructions: Headache, Adult ED, Nausea and Vomiting of , Stomach Pain in Early Add. Discharge Instructions: Drink plenty of clear liquids to stay well-hydrated. Eat small quantities of healthy bland food throughout the day to help prevent nausea. You may use Phenergan (promethazine) as prescribed for nausea and vomiting. Use with caution as it may make you drowsy. Keep your appointment with the quantitative associate on the . Return to the hospital tomorrow morning at about 7:30 for your ultrasound. Check-in at the registration desk. Bring your order form with you. You may take Tylenol (acetaminophen) up to 1000 mg every 6 hours as needed for pain or headaches. Return to the ER if you have worsening symptoms despite following these instructions. All discharge instructions reviewed with patient and/or family. Voiced understanding. Scripts Promethazine HCl (Promethazine HCl) 12.5 Mg Tablet 12.5 MG PO Q6H PRN for NAUSEA/VOMITING, #20 TAB Prov: ALEXIS CARTAGENA MD 01/02/23 Copy Copies To 1: [facility] ALEXIS CARTAGENA MD Jan 02, 2023 19:27
[2023-01-02] MEDS ORDERED: LACTATED RINGERS 1,000 ML 1,000 ML IV ONE (19:30)
[2023-01-02 19:41] LABS: BASOPHILS # (AUTO) 0.1 10^3/uL (0.0-0.1); BASOPHILS % (AUTO) 0 % (0-10); EOSINOPHILS # (AUTO) 0.1 10^3/uL (0.0-0.3); EOSINOPHILS % (AUTO) 1 % (0-10); HEMATOCRIT 40 % (35-52); HEMOGLOBIN 13.5 g/dL (11.5-16.0); LYMPHOCYTES # (AUTO) 2.4 10^3/uL (1.0-4.0); LYMPHOCYTES % (AUTO) 20 % (12-44); MEAN CORPUSCULAR HEMOGLOBIN 32 pg (25-34); MEAN CORPUSCULAR HGB CONC 34 g/dL (32-36); MEAN CORPUSCULAR VOLUME 93 fL (80-99); MEAN PLATELET VOLUME 10.5 fL (9.0-12.2); MONOCYTES # (AUTO) 0.9 10^3/uL (0.0-1.0); MONOCYTES % (AUTO) 7 % (0-12); NEUTROPHILS # (AUTO) 8.8 10^3/uL (1.8-7.8); NEUTROPHILS % (AUTO) 71 % (42-75); PLATELET COUNT 267 10^3/uL (130-400); WHITE BLOOD COUNT 12.4 10^3/uL (4.3-11.0)
[2023-01-02 19:56] LABS: ALBUMIN 4.2 GM/DL (3.2-4.5); BILIRUBIN,TOTAL 0.3 MG/DL (0.1-1.0); CALCIUM 9.8 MG/DL (8.5-10.1); CREATININE SERUM 0.71 MG/DL (0.60-1.30); MAGNESIUM 2.1 MG/DL (1.6-2.4); TOTAL PROTEIN 8.3 GM/DL (6.4-8.2)
[2023-01-02 20:11] LABS: BILIRUBIN,URINE NEGATIVE (NEGATIVE); CLARITY,URINE CLEAR; COLOR,URINE YELLOW; GLUCOSE, URINE (UA) NEGATIVE (NEGATIVE); KETONES,URINE NEGATIVE (NEGATIVE); NITRITE,URINE NEGATIVE (NEGATIVE); PH,URINE 7.5 (5-9); PROTEIN,URINE NEGATIVE (NEGATIVE)
[2023-01-02 20:12] LABS: AMORPHOUS SEDIMENT,UR FEW AMOR PHOSPHATE /LPF; BACTERIA,URINE FEW /HPF; LEUKOCYTE ESTERASE ,URINE NEGATIVE (NEGATIVE); SQUAMOUS EPITHELIAL CELL,UR 0-2 /HPF; WAXY CASTS,URINE RARE /LPF; WBC,URINE RARE /HPF
[2023-01-02] MEDS ORDERED: ACETAMINOPHEN 500 MG TABLET PO ONE (20:30)
[2023-01-02] MEDS ORDERED: PROMETHAZINE INJ 25 MG/ML VIAL IVP ONE (20:45)
[2023-01-02] MEDS ORDERED: PROM12.511 PO (21:34)
[2023-01-02 21:57] VITALS: BP 122/78
== END 2023-01-02 21:57 | disposition other institution (70) ==
LOC: EDUNIT# 18:48 → ER 18:52
DX: O26.891 Other specified pregnancy related conditions, first trimester (principal); R10.2 Pelvic and perineal pain; R51.9 Headache, unspecified; R11.2 Nausea with vomiting, unspecified; Z3A.10 10 weeks gestation of pregnancy
CPT/HCPCS: 36415; 80053; 81000; 83735; 84702; 85025; 87088; 96361; 96374

== ENCOUNTER 2023-01-29 15:19 | Emergency (ER) | payer SELFPAY ==
[~2023-01-29 15:19] MED LIST changes: +PROM12.511 PO
[2023-01-29] MEDS ORDERED: LACTATED RINGERS 1,000 ML 1,000 ML IV ONE (15:30)
[2023-01-29] MEDS ORDERED: FAMOTIDINE INJ 20MG/2ML VIAL IVP ONE (15:45)
[2023-01-29] MEDS ORDERED: PROMETHAZINE INJ 25 MG/ML VIAL IVP ONE (15:45)
[2023-01-29 15:46] LABS: BASOPHILS % (AUTO) 0 % (0-10); EOSINOPHILS # (AUTO) 0.1 10^3/uL (0.0-0.3); EOSINOPHILS % (AUTO) 1 % (0-10); HEMATOCRIT 35 % (35-52); HEMOGLOBIN 11.7 g/dL (11.5-16.0); LYMPHOCYTES # (AUTO) 1.9 10^3/uL (1.0-4.0); LYMPHOCYTES % (AUTO) 19 % (12-44); MEAN CORPUSCULAR HEMOGLOBIN 32 pg (25-34); MEAN CORPUSCULAR HGB CONC 34 g/dL (32-36); MEAN CORPUSCULAR VOLUME 95 fL (80-99); MEAN PLATELET VOLUME 10.3 fL (9.0-12.2); MONOCYTES # (AUTO) 0.7 10^3/uL (0.0-1.0); MONOCYTES % (AUTO) 7 % (0-12); NEUTROPHILS # (AUTO) 6.9 10^3/uL (1.8-7.8); NEUTROPHILS % (AUTO) 72 % (42-75); PLATELET COUNT 254 10^3/uL (130-400); WHITE BLOOD COUNT 9.6 10^3/uL (4.3-11.0)
[2023-01-29 15:54] LABS: ALBUMIN 3.8 GM/DL (3.2-4.5); INR 0.9 (0.8-1.4); PROTHROMBIN TIME PATIENT 12.8 SEC (12.2-14.7)
[2023-01-29 15:55] LABS: POTASSIUM 3.5 MMOL/L (3.6-5.0)
[2023-01-29 15:56] LABS: CALCIUM 9.2 MG/DL (8.5-10.1)
[2023-01-29 15:57] LABS: TOTAL PROTEIN 7.6 GM/DL (6.4-8.2)
[2023-01-29 15:59] LABS: BILIRUBIN,TOTAL 0.2 MG/DL (0.1-1.0)
[2023-01-29 16:01] LABS: CREATININE SERUM 0.7 MG/DL (0.60-1.30)
[2023-01-29] MEDS ORDERED: FAMO-119 PO (16:52)
[2023-01-29] MEDS ORDERED: ONDA4TAB11 SL (16:52)
--- NOTE | 2023-01-29 16:53 | ED GU-Female ---
General Chief Complaint: Abdominal/GI Problems Stated Complaint: NAUSEA, VOMITING BLOOD, 13WKS Nursing Triage Note: PT AMB TO RM 9 PT CO OF VOMITING SOME BLOOD TODAY, PT IS APPROX 13 WEEKS PREGANT AND STATES HAS BEEN VOMITING NUMEROUS TIMES DAILY. PT RATES DISCOMFORT 8/10 IN LOWER ABD. 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 She is particularly co ncerned because she had 2 episodes in which she brought up some perceived blood with the vomiting. The video last turner was used to assist with interview. This patient is familiar to me from a prior visit. During her prior visit, she was treated for nausea and vomiting and received a prescription for Phenergan. She states the Phenergan has not been particularly effective, so she has not been using anything for nausea or vomiting. When she discussed her nausea and vomiting with Dr. Nicolas, no further instructions for nausea and vomiting was given as Dr. Nicolas had noted she was already prescribed Phenergan from the ER. She reports 2 types of pain today. First, she has right lower quadrant pain with movement such as walking or standing up. As she describes it, this sounds like round ligament pain. She also describes an intermittent right upper quadrant pain sometimes associated with eating and nausea/vomiting, but not always. She is afebrile and in no acute distress. She has minimal tenderness in the right lower quadrant. The right upper quadrant is nontender in the abdomen, but there is tenderness over the right anterior lower chest wall, above the costal margin line. This appears to be a musculoskeletal chest wall tenderness. heart tones obtained by nursing staff by Doppler were in the 150s. Vital signs were reviewed and were within normal limits. She denies any vaginal or urinary symptoms. Allergies and Home Medications Allergies Coded Allergies: No Known Drug Allergies (Unverified , 07/27/20) Patient Home Medication List Home Medication List Reviewed: Yes D-Methorphan Hb/P-Epd HCl/Bpm (Bromfed Dm Cough Syrup) 118 Ml Syrup, 5 ML PO Q4H PRN for CONGESTION Prescribed by: ROGE ERICKSON on 02/01/21 1038 Famotidine (Pepcid) 20 Mg Tablet, 20 MG PO BID Prescribed by: ALEXIS CHAMBERS on 01/29/231651 Ondansetron (Ondansetron Odt) 4 Mg Tab.rapdis, 4 MG SL Q4H PRN for NAUSEA/VOMITING Prescribed by: ALEXIS CHAMBERS on 01/29/231651 Promethazine HCl (Promethazine HCl) 12.5 Mg Tablet, 12.5 MG PO Q6H PRN for NAUSEA/VOMITING Prescribed by: ALEXIS CHAMBERS on 01/02/232133 Review of Systems Review of Systems Constitutional: no symptoms reported EENTM: no symptoms reported Respiratory: no symptoms reported Cardiovascular: no symptoms reported Gastrointestinal: see HPI Genitourinary: see HPI : Yes LMP: Oct 31, 2022 Musculoskeletal: no symptoms reported Skin: no symptoms reported Psychiatric/Neurological: No Symptoms Reported Endocrine: No Symptoms Reported Hematologic/Lymphatic: No Symptoms Reported Past Efjuodi-Oyjvoe-Vpqunx Hx Patient Social History Tobacco Use?: No Substance use?: No Alcohol Use?: No Pt feels they are or have been: No Immunizations Up To Date First/Initial COVID19 Vaccinat: 02/2021 Second COVID19 Vaccination Román: 02/2022 Third COVID19 Vaccination Date: 02/2021 Seasonal Allergies Seasonal Allergies: No Past Medical History Surgery/Hospitalization HX: DENIES Surgeries: No Respiratory: No Cardiac: No Neurological: Yes Headaches /Migraines Last Menstrual Period: Oct 31, 2022 Genitourinary: No Gastrointestinal: No Musculoskeletal: No Endocrine: No HEENT: No Cancer: No Psychosocial: No Integumentary: No Blood Disorders: No Physical Exam Vital Signs Vital Signs - First Documented 01/29/23 15:30 Temp 36.7 Pulse 86 Resp 16 B/P (MAP) 122/83 (96) Pulse Ox 100 Capillary Refill : Less Than 3 Seconds Height, Weight, BMI Height: '" Weight: lbs. oz. kg; 29.00 BMI Method: General Appearance: WD/WN, no apparent distress HEENT: normal ENT inspection Neck: normal inspection Cardiovascular: regular rate, rhythm, no edema, no murmur Respiratory: lungs clear, normal breath sounds, no respiratory distress, no accessory muscle use, other (Tenderness over the right anterior lower chest wall above the costal margin) Gastrointestinal: normal bowel sounds, soft; No distended; tenderness (Minimal tenderness in the right lower quadrant. There is no tenderness in the right upper quadrant but there is over the chest wall.), other (Appropriately gravid for gestational age) Extremities: normal inspection, no pedal edema Neurologic/Psychiatric: no motor/sensory deficits, alert, normal mood/affect, oriented x 3 Skin: normal color, warm/dry Progress/Results/Core Measures Suspected Sepsis SIRS Temperature: Pulse: 86 Respiratory Rate: 16 Laboratory Tests 01/29/23 15:35: White Blood Count 9.6 Blood Pressure 122 /83 Mean: 96 Laboratory Tests 01/29/23 15:35: Creatinine 0.70, INR Comment 0.9, Platelet Count 254, Total Bilirubin 0.2 Results/Orders Lab Results Laboratory Tests Test 01/29/23 15:35 Range/Units White Blood Count 9.6 4.3-11.0 10^3/uL Red Blood Count 3.68 L 3.80-5.11 10^6/uL Hemoglobin 11.7 11.5-16.0 g/dL Hematocrit 35 35-52 % Mean Corpuscular Volume 95 80-99 fL Mean Corpuscular Hemoglobin 32 25-34 pg Mean Corpuscular Hemoglobin Concent 34 32-36 g/dL Red Cell Distribution Width 12.5 10.0-14.5 % Platelet Count 254 130-400 10^3/uL Mean Platelet Volume 10.3 9.0-12.2 fL Immature Granulocyte % (Auto) 0 % Neutrophils (%) (Auto) 72 42-75 % Lymphocytes (%) (Auto) 19 12-44 % Monocytes (%) (Auto) 7 0-12 % Eosinophils (%) (Auto) 1 0-10 % Basophils (%) (Auto) 0 0-10 % Neutrophils # (Auto) 6.9 1.8-7.8 10^3/uL Lymphocytes # (Auto) 1.9 1.0-4.0 10^3/uL Monocytes # (Auto) 0.7 0.0-1.0 10^3/uL Eosinophils # (Auto) 0.1 0.0-0.3 10^3/uL Basophils # (Auto) 0.0 0.0-0.1 10^3/uL Immature Granulocyte # (Auto) 0.0 0.0-0.1 10^3/uL Prothrombin Time 12.8 12.2-14.7 SEC INR Comment 0.9 0.8-1.4 Activated Partial Thromboplast Time 25 24-35 SEC Sodium Level 136 135-145 MMOL/L Potassium Level 3.5 L 3.6-5.0 MMOL/L Chloride Level 106 98-107 MMOL/L Carbon Dioxide Level 19 L 21-32 MMOL/L Anion Gap 11 5-14 MMOL/L Blood Urea Nitrogen 5 L 7-18 MG/DL Creatinine 0.70 0.60-1.30 MG/DL Estimat Glomerular Filtration Rate 117 BUN/Creatinine Ratio 7 Glucose Level 95 70-105 MG/DL Calcium Level 9.2 8.5-10.1 MG/DL Corrected Calcium 9.4 8.5-10.1 MG/DL Total Bilirubin 0.2 0.1-1.0 MG/DL Aspartate Amino Transf (AST/SGOT) 22 5-34 U/L Alanine Aminotransferase (ALT/SGPT) 15 0-55 U/L Alkaline Phosphatase 77 40-136 U/L Total Protein 7.6 6.4-8.2 GM/DL Albumin 3.8 3.2-4.5 GM/DL My Orders Orders - ALEXIS CARTAGENA MD Cbc And Automated Diff (01/29/23 15:28) Comprehensive Metabolic Panel (01/29/23 15:28) Protime With Inr (01/29/23 15:28) Partial Thromboplastin Time (01/29/23 15:28) Ed Iv/Invasive Line Start (01/29/23 15:28) Lactated Ringers 1,000 Ml (Lactated Ring (01/29/23 15:30) Promethazine Injection (Promethazine I (01/29/23 15:45) Famotidine Injection (Famotidine Injec (01/29/23 15:45) Medications Given in ED Vital Signs/I&O Capillary Refill : Less Than 3 Seconds Blood Pressure Mean: 96 Progress Note : Progress Note Patient was interviewed using the video last turner. She was examined as well. Labs were obtained and interpreted by me. CBC, CMP, and coag panel were all unremarkable. Patient had no vomiting or hematemesis during the ER visit. She had been seen by me in this emergency room previously and was prescribed Phenergan. She reported that Phenergan was not sufficient to control her nausea. She abandoned its use. She specifically reports having significant trouble taking vitamins because of the nausea they induce. She was advised to use a children's vitamin such as Flintstones vitamins as an alternative. She has had much nausea and vomiting throughout her . She is approximately 13 weeks gestational age at this time. Her bleeding is likely secondary to excessive nausea and vomiting causing esophagitis or gastritis. I explained to goals of therapy for her. First, we need to stop the vomiting to reduce irritation on the upper GI tract. Second, we should reduce acid production to allow upper GI tract healing. She was treated with Pepcid and Phenergan by IV route in the ER. She was hydrated with 1 L LR. Prescriptions for Zofran and Pepcid were provided. Zofran may be more effective for her and should be safer to take now that she is in the second trimester. I had a long conversation with the patient via the last turner regarding causes for the bleeding and ways to mitigate nausea, vomiting, and hematemesis. See discharge instructions for further discussion. I reviewed all of the discharge instructions and much more with the patient via last turner. Departure Impression Primary Impression: Hematemesis Qualified Codes: K92.0 - Hematemesis Additional Impressions: Nausea/vomiting in Chest wall tenderness Disposition: 01 HOME, SELF-CARE Condition: Improved Departure-Patient Inst. Decision time for Depature: 16:49 Referrals: [facility] (PCP/Family) Primary Care Physician Patient Instructions: Nausea and Vomiting of Add. Discharge Instructions: The blood you are vomiting is likely coming from irritation of the stomach or esophagus due to frequent vomiting of . You may try Zofran (ondansetron) as prescribed for nausea or vomiting. You may use this instead of Phenergan (promethazine) or in addition to Phenergan. Use the Pepcid (famotidine) as prescribed twice daily until otherwise instructed. This should help reduce acid production and reduce irritation of the stomach and esophagus. Avoid the following: Eating large meals, eating close to bedtime, caffeine, carbonation, citrus fruits and juices, tomato products, alcohol, tobacco, spicy foods, mints, fatty/greasy foods, NSAID medications such as ibuprofen or naproxen, and anything else you know irritate your stomach. To eat small quantities of food frequently throughout the day rather than a few larger meals. Return to the emergency room if you have worsening symptoms despite following these instructions. All discharge instructions reviewed with patient and/or family. Voiced understanding. Scripts Famotidine (Pepcid) 20 Mg Tablet 20 MG PO BID, #60 TAB Prov: ALEXIS CARTAGENA MD 01/29/23 Ondansetron (Ondansetron Odt) 4 Mg Tab.rapdis 4 MG SL Q4H PRN for NAUSEA/VOMITING, #10 TAB 1 Refill Prov: ALEXIS CARTAGENA MD 01/29/23 Copy Copies To 1: MADISYN NICOLAS MD, JOSHUA T MD Jan 29, 2023 16:53
[2023-01-29 16:56] VITALS: BP 122/83
== END 2023-01-29 17:20 | disposition home or self-care (01) ==
LOC: EDUNIT# 15:19 → ER 15:24
DX: O99.611 Diseases of the digestive system complicating pregnancy, first trimester (principal); K92.0 Hematemesis; O99.891 Other specified diseases and conditions complicating pregnancy; R07.89 Other chest pain; Z3A.13 13 weeks gestation of pregnancy
CPT/HCPCS: 36415; 80053; 85025; 85610; 85730